=== PATIENT | male | born 1945 | race Hispanic/Latino ===

== ENCOUNTER → 2025-01-31 | Outpatient (CLI) | payer OTHER ==
--- NOTE | 2025-01-31 13:55 | HMCIMG ---
CT calcium scoring Clinical Information: HEART SAVER SCREENING Comparison: None CT Dose Index (CTDI): 13.30 mGy Dose Length Product (DLP): 186.18 total mGy-cm Findings: Calcium score 730.8. Significant calcification. The CT scan is not a complete chest CT. Covered portion is reviewed for incidental findings. No incidental findings seen. IMPRESSION: Calcium score as above. Calcium score reference stable: 0: No identifiable calcification 1- 10: Minimal identifiable calcification 11-100: Mild calcification 101- 400: Moderate calcification 401 and above: Significant calcification Automated exposure control and adequate statistical iterative reconstructions were utilized as dose reduction techniques.
== END | disposition home or self-care (01) ==
LOC: RAH 13:14
PROVIDERS: ATTEND Internal Medicine Cardiovascular Disease
DX: Z13.6 Encounter for screening for cardiovascular disorders (principal); I51.5 Myocardial degeneration
CPT/HCPCS: 75571

== ENCOUNTER → 2025-05-10 | Outpatient (CLI) | payer MEDICARE ==
--- NOTE | 2025-05-10 21:06 | HMCIMG ---
EXAM: CR Cervical spine, 4 views. CLINICAL HISTORY: Cervicalgia. COMPARISON: None provided. FINDINGS: Mild levoscoliosis of the cervical spine. Grade 1 degenerative anterolisthesis of C7 on T1. Mild osteopenia. Mild spondylosis and degenerative disc space narrowing, most pronounced at C5-C6. Normal vertebral body heights. No acute fracture. The prevertebral soft tissues are within normal limits. The included lungs are clear. IMPRESSION: No acute bony abnormality is evident. Mild levoscoliosis of the cervical spine. Grade 1 degenerative anterolisthesis of C7 on T1. Mild osteopenia. Mild spondylosis and degenerative disc space narrowing, most pronounced at C5-C6. /[place]
== END | disposition home or self-care (01) ==
LOC: RAH 10:56
PROVIDERS: ATTEND Internal Medicine
DX: M47.812 Spondylosis without myelopathy or radiculopathy, cervical region (principal); M43.13 Spondylolisthesis, cervicothoracic region; M48.02 Spinal stenosis, cervical region; M41.82 Other forms of scoliosis, cervical region; M85.88 Other specified disorders of bone density and structure, other site; M54.2 Cervicalgia
CPT/HCPCS: 72040